=== PATIENT | female | born 1925 | race Caucasian/White ===

== ENCOUNTER 2016-12-11 18:35 | Emergency (ER) | payer MEDICARE, OTHER ==
[~2016-12-11] VITALS: Ht 170.2 cm; Wt 59.1 kg
[2016-12-11 18:55] VITALS: BP 100/59
--- NOTE | 2016-12-11 19:42 | ED.ADGEN ---
Adult General HPI HPI Patient is an 89-year-old woman, history of "lung disease", who was on 4 L nasal cannula baseline, who presents via EMS with a complaint of hypoxia and home. Per EMS report, patient was with her son, who was away for several hours, when he returned his mother had taken her oxygen off, and her oxygen saturations were in the 70s. Patient is unclear as to what happened, she is oriented to self and to place, she states that she is feeling fine at this time , currently has her oxygen back on, and oxygen saturation is between 91-94% on her baseline 4 L. Patient's son reported EMS that she been experiencing a cough as well, patient is denying any cough or chest pain, any change in her baseline shortness of breath which she states "is always there". Denies any nausea or vomiting, any weakness, numbness, tingling, injuries or other complaints. She states that she is ready to be discharged home during my initial evaluation. She states that she "does not like hospitals". Review of Systems Review of Systems Constitutional: Denies fever or chills [] Eyes: Denies change in visual acuity, redness, or eye pain [] HENT: Denies nasal congestion or sore throat [] Respiratory: Denies change in cough or shortness of breath. [] Cardiovascular: No additional information not addressed in HPI [] GI: Denies abdominal pain, nausea, vomiting, bloody stools or diarrhea [] : Denies dysuria or hematuria [] Musculoskeletal: Denies back pain or joint pain [] Integument: Denies rash or skin lesions [] Neurologic: Denies headache, focal weakness or sensory changes [] Endocrine: Denies polyuria or polydipsia [] Allergies Allergies Allergies Coded Allergies Type Severity Reaction Last Updated Verified No Known Drug Allergies 12/11/16 No Physical Exam Physical Exam Constitutional: Well developed, well nourished, no acute distress, non-toxic appearance. [] Nasal cannula in place. HENT: Normocephalic, atraumatic, bilateral external ears normal, oropharynx moist, no oral exudates, nose normal. [] Eyes: PERRLA, EOMI, conjunctiva normal, no discharge. [] Neck: Normal range of motion, no tenderness, supple, no stridor. [] Cardiovascular:Heart rate regular rhythm, no murmur, S1, S2, no rubs or gallops. [] Lungs & Thorax: Patient with coarse breath sounds and diminished breath is noted bilaterally, no wheezing, rales identified. Abdomen: Bowel sounds normal, soft, no tenderness, , no rebound, rigidity, no guarding, no masses, no pulsatile masses. [] Skin: Warm, dry, no erythema, no rash. [] Back: No tenderness, no CVA tenderness. [] Extremities: No tenderness, no cyanosis, no clubbing, ROM intact, no edema. Negative Homans sign. [] Neurologic: Alert and oriented X 2, declined to answer additional questions, stating that she feels fine and wants to go home, normal motor function, normal sensory function, no focal deficits noted. [] Psychologic: Affect normal, judgement normal, mood normal. [] Current Patient Data Vital Signs Vital Signs Date Time Temp Pulse Resp B/P (MAP) Pulse Ox O2 Delivery O2 Flow Rate FiO2 12/11/16 18:55 98.6 102 20 90 Nasal Cannula EKG EKG ECG: Rhythm strip: Sinus rhythm, heart rate 88 bpm, no ectopy. As interpreted by me. Radiology/Procedures Radiology/Procedures [][place] [address] IMAGING REPORT Signed PATIENT: TERRENCE MACIEL ACCOUNT: [id number] : 1925 LOCATION: ER AGE: 89 SEX: F EXAM STATUS: REG ER ORD. PHYSICIAN: ANANTH RANGEL DO REASON: SOA/cough PROCEDURE: CHEST PA & LATERAL INDICATION: Dyspnea COMPARISON: January 06, 2007 FINDINGS: Two view examination of the chest demonstrates diffuse interstitial and alveolar opacities in bilateral lungs with coarsened lung markings. Calcific atherosclerosis. Degenerative changes the spine. Blunting of costophrenic angles posteriorly. Multiple probable compression deformities thoracic spine IMPRESSION: Diffuse patchy interstitial and alveolar opacities throughout the bilateral lungs have developed since 2006. Although a portion of this could be secondary to chronic lung disease superimposed multifocal infiltrate and/or edema can have this appearance. Blunting of costophrenic angles posteriorly could be from pleural thickening or pleural effusions. 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 Electronically signed by: Patsy Perry MD (12/11/2016 8:40 PM) DICTATED AND SIGNED BY: PATSY PERRY MD DATE: 12/11/162037 CC: ANANTH RANGEL DO; NILE SORTO MD ~ Course & Med Decision Making Course & Med Decision Making Pertinent Labs and Imaging studies reviewed. (See chart for details) Patient well-appearing, oxygen saturation 91-93% on room air, which is baseline for patient per report. Due to report of cough, chest x-ray obtained, reveals evidence of chronic lung findings, radiology interpretation reports also questioning findings or possible infiltrates or edema, however patient's examination reveals os is saturation that is stable on her baseline oxygen, with no fever, no cough, no complaints, therefore I believe that this is consistent with a likely stable x-ray finding for the patient. Patient again states she is feeling fine at this time, and like to go home. She denies all complaints, and laboratory trial was held in the emergency department, as patient in place with a cane or walker baseline, patient ambulating without any difficulty without any oxygen saturation or other compromise in the emergency department. I did discuss findings as above with Dr. Zhang, on-call for the patient's primary care provider, who is agreeable with plan for the patient be discharged home, to follow-up with the office as needed. Findings as above discussed with patient's son via telephone by nurse Ellington, who did arrive in the emergency department, to take the patient home. Patient remains, cooperative , stable on her baseline 4 L nasal cannula, and detailed return instructions precautions given, patient discharged home with son in stable condition with plan to follow-up as needed, and to continue her medications at home, with importance of keeping her oxygen place at all times impressed upon patient. Final Impression Final Impression [] Problems: Dragon Disclaimer Dragon Disclaimer This electronic medical record was generated, in whole or in part, using a voice recognition dictation system. Departure: Impression: Primary Impression: Encounter for medical screening examination Disposition: HOME, SELF-CARE Condition: STABLE ANANTH RANGEL DO December 11, 2016 19:42
--- NOTE | 2016-12-11 20:44 | RAD ---
INDICATION: Dyspnea COMPARISON: January 06, 2007 FINDINGS: Two view examination of the chest demonstrates diffuse interstitial and alveolar opacities in bilateral lungs with coarsened lung markings. Calcific atherosclerosis. Degenerative changes the spine. Blunting of costophrenic angles posteriorly. Multiple probable compression deformities thoracic spine IMPRESSION: Diffuse patchy interstitial and alveolar opacities throughout the bilateral lungs have developed since 2006. Although a portion of this could be secondary to chronic lung disease superimposed multifocal infiltrate and/or edema can have this appearance. Blunting of costophrenic angles posteriorly could be from pleural thickening or pleural effusions. 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 Electronically signed by: Serafin Osman MD (12/11/2016 8:40 PM)
== END 2016-12-11 21:48 | disposition home or self-care (01) ==
LOC: ER 18:35
DX: Z00.8 Encounter for other general examination (principal); R09.02 Hypoxemia
CPT/HCPCS: 71020; 99284